=== PATIENT | female | born 1980 | race Caucasian/White ===

== ENCOUNTER 2019-11-26 05:31 | Inpatient (IN) | payer OTHER ==
[~2019-11-26] VITALS: Ht 162.6 cm; Wt 59.9 kg
--- NOTE | 2019-11-26 05:48 | NUR ---
SE RECIBE PTE ALERTA Y ORIENTADA POR NANNETTE. PTE REFIERE DOLOR EN CUADRANTE SUPERIOR DERECHO DEL ABDOMEN Y DOS EPISODIOS DE VOMITOS EN LA MADRUGADA DE HOY.
--- NOTE | 2019-11-26 06:52 | NUR ---
TX. OFRECIDO POR MR. SAUCEDA QUIEN ORIENTA AL PACIENTE SOBRE EL [place]. SE EXTRAE MUESTRA DE CHANEL BAJO MEDIDAS ASEPTICAS ROTULA Y ENVIA AL LABORATORIO. CANALIZA Y ADMINISTRA MEDICAMENTO ISABELLA ORDEN MEDICA.
[2019-11-27] MEDS ORDERED: COLACE100 MG PO ×3 (12:26→12:48)
[2019-11-27] MEDS ORDERED: PERCOCET 5-3251 EACH PO ×2 (12:26→12:42)
== END 2019-11-27 18:37 | disposition home or self-care (01) | DRG 343 ==
LOC: ER 05:31 → SURH 11:26 → SEC-K 11:26 → SURH 17:10 → O/R 20:34 → SURG 11-27 08:35
PROVIDERS: ADMIT Surgery; ATTEND Surgery
PROC: BW40ZZZ Ultrasonography of Abdomen (ICD-10-PCS; 2019-11-26)
PROC: 0DTJ4ZZ Resection of Appendix, Percutaneous Endoscopic Approach (ICD-10-PCS; principal; 2019-11-26 19:00)
DX: K35.890 Other acute appendicitis without perforation or gangrene (principal); E86.0 Dehydration

== ENCOUNTER 2020-08-04 09:44 | Emergency (ER) | payer OTHER ==
[~2020-08-04] VITALS: Ht 162.6 cm; Wt 54.4 kg
[~2020-08-04 09:44] MED LIST: COLACE100 MG PO; PERCOCET 5-3251 EACH PO
[2020-08-04] MEDS ORDERED: SPIRONOLACTONE1 GM (09:52)
[2020-08-04] MEDS ORDERED: ZYRTEC10 M3 PO (14:11)
[2020-08-04] MEDS ORDERED: ATARAX25 MG PO (14:11)
[2020-08-04] MEDS ORDERED: MEDROLPACK PO (14:11)
== END 2020-08-04 14:18 | disposition home or self-care (01) ==
LOC: ER 09:44
DX: R21 Rash and other nonspecific skin eruption (principal); T78.49XA Other allergy, initial encounter